=== PATIENT | female | born 1990 | race Caucasian/White ===

== ENCOUNTER → 2024-08-30 | Outpatient (CLI) | payer OTHER ==
[2024-08-30 12:53] LABS: BASOPHILS ABSOLUTE AUTO 0.04 K/mm3 (0.00-0.23); BASOPHILS PERCENT AUTO 0 % (0-2); EOSINOPHILS ABSOLUTE AUTO 0.05 K/mm3 (0.00-0.68); EOSINOPHILS PERCENT AUTO 0 % (0-6); Hematocrit 33.8 % (33.0-51.0); Hemoglobin 11.5 g/dL (11.5-16.0); IMMATURE GRAN ABSOLUTE AUTO 0.17 K/mm3 (0.00-0.10); IMMATURE GRAN PERCENT AUTO 1 % (0-1); LYMPHOCYTES ABSOLUTE AUTO 1.81 K/mm3 (0.84-5.20); LYMPHOCYTES PERCENT AUTO 14 % (21-46); MONOCYTES ABSOLUTE AUTO 0.55 K/mm3 (0.16-1.47); MONOCYTES PERCENT AUTO 4 % (4-13); Mean Corpuscular HGB 30.6 pg (26.0-34.0); Mean Corpuscular Volume 90 fL (80-100); Mean Platelet Volume 8.9 fL (9.1-12.4); NEUTROPHILS ABSOLUTE AUTO 10.69 K/mm3 (1.96-9.15); NEUTROPHILS PERCENT AUTO 80 % (41-73); Platelet Count 256 K/mm3 (150-400); RDW Coefficient Variation 12.6 % (11.7-14.2); RDW Standard Deviation 41.1 fL (35.1-46.3); Red Blood Cell Count 3.76 M/mm3 (3.80-5.20); White Blood Cell Count 13.31 K/mm3 (4.00-11.30)
[2024-08-30 13:05] LABS: Albumin, Blood 2.7 g/dL (3.4-5.0); Albumin/Globulin Ratio 0.6 (0.8-1.8); Bilirubin, Total 0.3 mg/dL (0.1-1.0); Bun/Creatinine Ratio 1.3 (12.0-20.0); Calcium, Blood 9.3 mg/dL (8.5-10.1); Creatinine, Blood 0.75 mg/dL (0.40-1.00); Globulin, Blood 4.4 g/dL (2.2-4.0); Potassium, Blood 3.9 mmol/L (3.5-5.5); Total Protein, Blood 7.1 g/dL (6.4-8.2)
== END | disposition home or self-care (01) ==
LOC: LAB SHORT 12:49 → LAB 12:49
PROVIDERS: Physician Assistant
DX: O23.40 Unspecified infection of urinary tract in pregnancy, unspecified trimester (principal); N39.0 Urinary tract infection, site not specified
CPT/HCPCS: 80053; 85025; 87086

== ENCOUNTER → 2024-09-02 | Outpatient (CLI) | payer OTHER | LOC: LAB SHORT 14:15 → LAB 14:15 | DX: O09.93 Supervision of high risk pregnancy, unspecified, third trimester (principal) | CPT/HCPCS: 87081; 87150 ==

== ENCOUNTER → 2024-09-12 | Outpatient (CLI) | payer OTHER ==
[2024-09-12 17:33] LABS: BASOPHILS ABSOLUTE AUTO 0.04 K/mm3 (0.00-0.23); BASOPHILS PERCENT AUTO 0 % (0-2); EOSINOPHILS ABSOLUTE AUTO 0.05 K/mm3 (0.00-0.68); EOSINOPHILS PERCENT AUTO 0 % (0-6); Hematocrit 34.3 % (33.0-51.0); Hemoglobin 11.6 g/dL (11.5-16.0); IMMATURE GRAN ABSOLUTE AUTO 0.24 K/mm3 (0.00-0.10); IMMATURE GRAN PERCENT AUTO 2 % (0-1); LYMPHOCYTES ABSOLUTE AUTO 2.14 K/mm3 (0.84-5.20); LYMPHOCYTES PERCENT AUTO 13 % (21-46); MONOCYTES ABSOLUTE AUTO 0.71 K/mm3 (0.16-1.47); MONOCYTES PERCENT AUTO 4 % (4-13); Mean Corpuscular HGB 30.6 pg (26.0-34.0); Mean Corpuscular HGB Conc 33.8 g/dL (31.5-36.5); Mean Corpuscular Volume 91 fL (80-100); Mean Platelet Volume 9.1 fL (9.1-12.4); NEUTROPHILS ABSOLUTE AUTO 12.79 K/mm3 (1.96-9.15); NEUTROPHILS PERCENT AUTO 80 % (41-73); Platelet Count 255 K/mm3 (150-400); RDW Standard Deviation 41.7 fL (35.1-46.3); Red Blood Cell Count 3.79 M/mm3 (3.80-5.20); White Blood Cell Count 15.97 K/mm3 (4.00-11.30)
[2024-09-12 17:49] LABS: Albumin, Blood 2.6 g/dL (3.4-5.0); Albumin/Globulin Ratio 0.6 (0.8-1.8); Bilirubin, Total 0.3 mg/dL (0.1-1.0); Bun/Creatinine Ratio 11.1 (12.0-20.0); Calcium, Blood 9.3 mg/dL (8.5-10.1); Creatinine, Blood 0.72 mg/dL (0.40-1.00); Free Thyroxine 0.83 ng/dL (0.70-1.60); Globulin, Blood 4.3 g/dL (2.2-4.0); Thyroid Stimulating Hormone 0.868 uIU/mL (0.360-4.800); Total Protein, Blood 6.9 g/dL (6.4-8.2)
[2024-09-12 20:50] LABS: Creatinine, Urine Random 51.6 mg/dL (27.00-270.00); Protein, Urine Random 6.8 mg/dL (0.0-11.9); Protein/Creat Ratio, Ur Random 0.1
== END | disposition home or self-care (01) ==
LOC: LAB 17:27 → LAB SHORT 17:27
PROVIDERS: Emergency Medicine
DX: M79.89 Other specified soft tissue disorders (principal); R60.0 Localized edema
CPT/HCPCS: 80053; 82570; 83615; 84156; 84439; 84443; 85025

== ENCOUNTER 2024-09-29 09:56 | Inpatient (IN) | payer OTHER ==
[~2024-09-29] VITALS: Ht 162.6 cm; Wt 127.2 kg
[2024-09-29] VITALS (25 sets, daily range): BP systolic 113–183; BP diastolic 55–98
[2024-09-29] MEDS ORDERED: Ondansetron HCl 2 MG / ML 2ML Vial IV PRN (11:00)
[2024-09-29] MEDS ORDERED: Penicillin G Potassium 5,000,000 UNITS in NS 250 ML IV ONE (11:00)
[2024-09-29] MEDS ORDERED: Carboprost Tromethamine 250 MCG/ML 1ML Amp IM PRN (11:00)
[2024-09-29] MEDS ORDERED: Misoprostol 200 MCG Tab BC PRN (11:00)
[2024-09-29] MEDS ORDERED: Methylergonovine Maleate 0.2MG / ML 1ML Amp IM PRN (11:00)
[2024-09-29] MEDS ORDERED: Tranexamic Acid 100 ML IV SCH (11:00)
[2024-09-29] MEDS ORDERED: Misoprostol 200 MCG Tab PR PRN (11:00)
[2024-09-29] MEDS ORDERED: Oxytocin 10 Unit / ML Vial IM PRN (11:00)
[2024-09-29] MEDS ORDERED: Calcium Carbonate 500 MG Tab Chew PO SCH (11:00)
[2024-09-29] MEDS ORDERED: Lactated Ringer's 1,000 ML IV PRN (11:00)
[2024-09-29] MEDS ORDERED: Acetaminophen 500 MG Tab PO PRN (11:00)
[2024-09-29] MEDS ORDERED: OXYTOCIN/RINGER'S LACTATE 500 ML IV PRN (11:00)
[2024-09-29] MEDS ORDERED: ePHEDrine Sulfate 50 MG/ML 1ML Injection XX PRN (11:05)
[2024-09-29] MEDS ORDERED: FentaNYL 2mcg/ml-Bup 0.1% Epd 250 ML EPI PRN (11:05)
[2024-09-29] MEDS ORDERED: Lactated Ringer's 1,000 ML IV SCH ×2 (11:05)
[2024-09-29 11:51] LABS: BASOPHILS ABSOLUTE AUTO 0.07 K/mm3 (0.00-0.23); BASOPHILS PERCENT AUTO 0 % (0-2); EOSINOPHILS ABSOLUTE AUTO 0.03 K/mm3 (0.00-0.68); EOSINOPHILS PERCENT AUTO 0 % (0-6); Hematocrit 33.1 % (33.0-51.0); Hemoglobin 11.3 g/dL (11.5-16.0); IMMATURE GRAN ABSOLUTE AUTO 0.21 K/mm3 (0.00-0.10); IMMATURE GRAN PERCENT AUTO 1 % (0-1); LYMPHOCYTES ABSOLUTE AUTO 1.94 K/mm3 (0.84-5.20); LYMPHOCYTES PERCENT AUTO 12 % (21-46); MONOCYTES ABSOLUTE AUTO 0.74 K/mm3 (0.16-1.47); MONOCYTES PERCENT AUTO 5 % (4-13); Mean Corpuscular HGB 31.1 pg (26.0-34.0); Mean Corpuscular HGB Conc 34.1 g/dL (31.5-36.5); Mean Corpuscular Volume 91 fL (80-100); Mean Platelet Volume 9.5 fL (9.1-12.4); NEUTROPHILS ABSOLUTE AUTO 13.37 K/mm3 (1.96-9.15); NEUTROPHILS PERCENT AUTO 82 % (41-73); Platelet Count 233 K/mm3 (150-400); RDW Coefficient Variation 13.2 % (11.7-14.2); RDW Standard Deviation 43.8 fL (35.1-46.3); Red Blood Cell Count 3.63 M/mm3 (3.80-5.20); White Blood Cell Count 16.36 K/mm3 (4.00-11.30)
[2024-09-29] MEDS ORDERED: METF500 PO (12:23)
[2024-09-29] MEDS ORDERED: VALA500 PO (12:24)
[2024-09-29] MEDS ORDERED: LEVOTHYROXINE88 MC9 PO (12:25)
[2024-09-29] MEDS ORDERED: DOCU100 PO (12:26)
[2024-09-29] MEDS ORDERED: ASPI81CH PO (12:26)
[2024-09-29] MEDS ORDERED: PRENATAL TABLE1 EAC2 PO (12:26)
[2024-09-29] MEDS ORDERED: DICLEGIS DR 101 EAC1 PO (12:27)
[2024-09-29] MEDS ORDERED: FAMO20 PO (12:28)
[2024-09-29] MEDS ORDERED: MIRALAX11910 PO (12:28)
[2024-09-29] MEDS ORDERED: Polyethylene Glycol 3350 17 gm PO PRN (13:05)
[2024-09-29] MEDS ORDERED: Penicillin G Potassium 2,500,000 UNITS in Dextrose 5% 100 ML IV SCH (16:00)
[2024-09-29] MEDS ORDERED: MetFORMIN HCl 500 mg PO SCH (17:00)
[2024-09-29] MEDS ORDERED: DiphenhydrAMINE HCL 25 MG Cap PO PRN (17:20)
[2024-09-29] MEDS ORDERED: OXYTOCIN/RINGER'S LACTATE 500 ML IV SCH (23:20)
[2024-09-30] VITALS (14 sets, daily range): BP systolic 115–159; BP diastolic 64–94
[2024-09-30] MEDS ORDERED: Lactated Ringer's 1,000 ML IV SCH (02:45)
[2024-09-30] MEDS ORDERED: Carboprost Tromethamine 250 MCG/ML 1ML Amp IM PRN (02:45)
[2024-09-30] MEDS ORDERED: Misoprostol 200 MCG Tab PR PRN (02:45)
[2024-09-30] MEDS ORDERED: Ketorolac Tromethamine 30mg Vial IV PRN (02:45)
[2024-09-30] MEDS ORDERED: OXYTOCIN/RINGER'S LACTATE 500 ML IV SCH (02:45)
[2024-09-30] MEDS ORDERED: Acetaminophen 500 MG Tab PO PRN (02:45)
[2024-09-30] MEDS ORDERED: Benzocaine Topical Anesthetic Spray 60GM TOP PRN (02:50)
[2024-09-30] MEDS ORDERED: Docusate Sodium 100 MG Cap PO PRN (02:50)
[2024-09-30] MEDS ORDERED: Witch Hazel/Glycerin PADS TOP PRN (02:50)
[2024-09-30] MEDS ORDERED: FLU VACC TS2024-25(6MOS UP)/PF 45 MCG/0.5 ML SYRINGE IM ONE (02:50)
[2024-09-30] MEDS ORDERED: Ibuprofen 400 MG Tab PO PRN (02:50)
[2024-09-30] MEDS ORDERED: Levothyroxine Sodium 0.088 MG Tab PO SCH (06:00)
[2024-09-30] MEDS ORDERED: Prenatal Vit/FE Fumarate/FA 1 Tab PO SCH (09:00)
[2024-09-30 14:20] LABS: Hematocrit 28.2 % (33.0-51.0); Hemoglobin 9.6 g/dL (11.5-16.0); Mean Corpuscular HGB 31.5 pg (26.0-34.0); Mean Corpuscular Volume 93 fL (80-100); Mean Platelet Volume 9.4 fL (9.1-12.4); Platelet Count 189 K/mm3 (150-400); RDW Coefficient Variation 13.2 % (11.7-14.2); RDW Standard Deviation 44.4 fL (35.1-46.3); Red Blood Cell Count 3.05 M/mm3 (3.80-5.20); White Blood Cell Count 18.57 K/mm3 (4.00-11.30)
[2024-10-01 00:29] VITALS: BP 154/82
[2024-10-01 04:23] VITALS: BP 128/83
[2024-10-01 08:09] VITALS: BP 147/95
[2024-10-01 10:06] VITALS: BP 130/67
== END 2024-10-01 11:05 | disposition home or self-care (01) | DRG 807 ==
LOC: BC 09:56 → OBS 09:56 → BC 10:46
PROVIDERS: ADMIT Obstetrics & Gynecology
PROC: 10E0XZZ Delivery of Products of Conception, External Approach (ICD-10-PCS; principal; 2024-09-30)
PROC: 0KQM0ZZ Repair Perineum Muscle, Open Approach (ICD-10-PCS; 2024-09-30)
PROC: 3E0R3BZ Introduction of Anesthetic Agent into Spinal Canal, Percutaneous Approach (ICD-10-PCS; 2024-09-30)
PROC: 00HU33Z Insertion of Infusion Device into Spinal Canal, Percutaneous Approach (ICD-10-PCS; 2024-09-30)
DX: O99.824 Streptococcus B carrier state complicating childbirth (principal); Z37.0 Single live birth; O13.4 Gestational [pregnancy-induced] hypertension without significant proteinuria, complicating childbirth; O99.344 Other mental disorders complicating childbirth; F41.8 Other specified anxiety disorders; O26.893 Other specified pregnancy related conditions, third trimester; E88.819 Insulin resistance, unspecified; O99.324 Drug use complicating childbirth; Z3A.39 39 weeks gestation of pregnancy; O99.214 Obesity complicating childbirth; E03.9 Hypothyroidism, unspecified; O99.284 Endocrine, nutritional and metabolic diseases complicating childbirth; Z98.890 Other specified postprocedural states; F12.90 Cannabis use, unspecified, uncomplicated; O70.1 Second degree perineal laceration during delivery
CPT/HCPCS: 36415; 51702; 59025; 85025; 85027; 86850; 86900; 86901; 86923; 99214; A9270; J1885; J2405; J2540; J2590; J7050; J7120